=== PATIENT | female | born 2000 | race Caucasian/White ===

== ENCOUNTER 2024-04-28 09:15 | Emergency (ER) | payer BC, SELFPAY ==
[2024-04-28 09:18] VITALS: BP 78/60
--- NOTE | 2024-04-28 09:31 | ED.GENMED ---
History of Present Illness
<Elsi Gaitan PA-C - Last Filed: 04/28/24 16:15>
General
Chief Complaint: Musculo-Skeletal Complaint
Source: patient
Exam Limitations: none
Time Seen by Provider: 04/28/24 09:29
Nursing documentation reviewed up to this point in time: agreed with
History of Present Illness
History of Present Illness:
This is a 24-year-old female with past medical history of ACL repair presents emergency department today with concerns of right shoulder pain. Patient reports that she was at the gym today when she was doing a shoulder press exercises overhead when
she subsequently felt sharp, acute pain and felt that her shoulder had popped out. This has happened to her once before when she was skiing but it went in on its own. She does see an orthopedist with [facility] and [place]. Patient
states that at the gym, EMS was called. She denies any other injuries, denies any falls, denies loss of sensation in her upper extremity.
Review of Systems
<KRISTINA Padilla Last Filed: 04/28/24 16:15>
Review of Systems
All Other Systems: ROS reviewed and negative except as documented in HPI and ROS
Phy Exam
<KRISTINA Padilla Last Filed: 04/28/24 16:15>
Physical Exam
Physical Exam:
General: Patient is well appearing and in no acute distress; non-toxic
Skin: Warm and dry, no rashes or lesions
Head: Normocephalic, atraumatic
Eyes: Sclera non-icteric. EOMs intact.
Cardiac: Regular rate
Pulm: Normal respiratory effort
Musculoskeletal: Right shoulder held in abduction and external rotation.
Neuro: CN II-XII intact, no focal neurologic deficits. Sensation intact.
Psychiatric: Appropriate mood and affect.
Course
<Elsi Gaitan PA-C - Last Filed: 04/28/24 16:15>
Orders/Labs/Results
Orders:
Orders
04/28/24 09:31
CR Shoulder - Right Min 2 View Urgent
Comment:
Reason For Exam: right shoulder pain/dislocation
04/28/24 10:45
CR Shoulder - Right 1 View Urgent
Comment:
Reason For Exam: post reduction
Vital Signs
Initial and Last Documented VS:
Initial Vital Signs
Temp Pulse Resp BP Pulse Ox
98.6 F 61 16 78/60 99
04/28/24 09:18 04/28/24 09:18 04/28/24 09:18 04/28/24 09:18 04/28/24 09:18
Last Documented Vital Signs
Temp Pulse Resp BP Pulse Ox
98.6 F 53 14 114/67 99
04/28/24 09:18 04/28/24 10:59 04/28/24 10:59 04/28/24 10:59 04/28/24 10:59
<Yahir Moreira MD - Last Filed: 04/28/24 18:28>
Orders/Labs/Results
Orders:
Orders
04/28/24 09:31
CR Shoulder - Right Min 2 View Urgent
Comment:
Reason For Exam: right shoulder pain/dislocation
04/28/24 10:45
CR Shoulder - Right 1 View Urgent
Comment:
Reason For Exam: post reduction
Vital Signs
Initial and Last Documented VS:
Initial Vital Signs
Temp Pulse Resp BP Pulse Ox
98.6 F 61 16 78/60 99
04/28/24 09:18 04/28/24 09:18 04/28/24 09:18 04/28/24 09:18 04/28/24 09:18
Last Documented Vital Signs
Temp Pulse Resp BP Pulse Ox
98.6 F 53 14 114/67 99
04/28/24 09:18 04/28/24 10:59 04/28/24 10:59 04/28/24 10:59 04/28/24 10:59
Procedures
<Elsi Gaitan PA-C - Last Filed: 04/28/24 16:15>
Joint/Fracture Reduction
Right Shoulder:
Indication for procedure:: Right shoulder dislocation, pain
Procedure completed by: Elsi Gaitan PA-C
Joint reduced: without anesthesia
Anesthesia/sedation: Injection to joint space (My attending Dr. Moreira performed intraarticular joint injection for pain relief with bupivacaine and lidocaine )
Injury was: closed
Post reduction exam: stable
Capillary Refill: normal
Normal distal neurovascular exam?: Yes
Additional information:
Normal peripheral pulses
<Elsi Gaitan PA-C - Last Filed: 04/28/24 16:15>
MDM/Problems Addressed
Differential Diagnosis Includes:
ddx include musculoskeletal sprain/strain, anterior shoulder dislocation, posterior shoulder dislocation
MDM/Problems Addressed:
This is a 24-year-old female with past medical history of ACL repair presents emergency department today with concerns of right shoulder pain. Patient reports that her shoulder popped out at the gym today while doing an overhead press with
dumbbells. X-ray demonstrates right anterior shoulder dislocation. Her shoulder was reduced without the need for procedural sedation. Patient tolerated the procedure well. Patient will follow up with her orthopedic surgeon.
<Elsi Gaitan PA-C - Last Filed: 04/28/24 16:15>
*Pulse Oximetry
Patient hypoxic: no
*Critical Care Note
Total Time (30-74mins, 75-104mins- exclusive of procedures): Not Applicable
Data Reviewed
Review of Other/Old Records Reveals: Records (n previous ER visits)
Source: patient and records
<Elsi Gaitan PA-C - Last Filed: 04/28/24 16:15>
Patient Management
Escalation/DeEscalation of care consider admission/obs:
Admit not indicated, patient stable for discharge
ED Attending Note
<Elsi Gaitan PA-C - Last Filed: 04/28/24 16:15>
-
Portions of this chart may have been created with voice recognition software.� Occasional wrong word or��sound alike� substitutions may have occurred due to the inherent limitations of voice recognition software.
<Yahir Moreira MD - Last Filed: 04/28/24 18:28>
ED Attending Note
Patient seen and examined by attending physician: Yes
ED Attending Note:
Pt with previous history of right shoulder dislocation, presents to ED with similar recurrent right shoulder pain, while lifting free weight at the gym, shortly prior to arrival. Denies direct trauma. Denies loss of sensation/weakness.
General: well nourished female, in mild painful distress. afebrile
Heent: nc/at. eomi
Lungs: cta
Neuro: aao x 3. no focal neurological deficit.
Ext: mild tenderness to palpation over right shoulder with mild soft tissue defect.
Skin: no rash. warm to touch.
Psych: pleasant and cooperative.
History/exam and x-ray consistent with right shoulder dislocation.
Local anesthesia provided with lidocaine/bupivocaine. Shoulder successfully reduced with external rotation, confirmed via repeat x-ray. Pt is otherwise neurologically intact at time of discharge, to the care of her family.
Discharge Plan
Departure
Patient Disposition: Home (Routine Discharge)
Date of Disposition: 04/28/24
Time of Disposition: 11:19
Patient with high blood pressure during this ER visit?: No
Condition: Good
Discharge Problem:
Anterior dislocation of right shoulder
Instructions: Shoulder Dislocation, How to Use a Shoulder Sling
Referrals:
Brandon Andrew DO [Family Provider] -
Activity Restrictions/Additional Instructions:
Please follow-up with your orthopedic surgeon.
You can alternate Tylenol and Motrin for pain.
Please return to the emergency department should you experience persistent numbness and tingling in your right arm, pallor, loss of sensation, increasing pain, or any other signs or symptoms concerning to you.
Interventions
Interventions:
*Risk Screen - Suicide Last Done: 04/28/24 09:18
*General Assessment Last Done: 04/28/24 09:40
*Neglect/Abuse Screening Last Done: 04/28/24 09:18
ED- Fall Risk Assessment Last Done: 04/28/24 09:40
*ED COVID-19 Vaccine History Last Done: 04/28/24 09:40
*Nursing Disposition Last Done: 04/28/24 11:47
ED-Musculoskeletal Assessment Last Done: 04/28/24 09:41
Discharge Date and Time
Discharge Date/Time: 04/28/24 11:48
Print Language: ERITREAN
[2024-04-28 09:38] VITALS: BMI 24.4
--- NOTE | 2024-04-28 10:30 | EDRN ---
Dr. Moreira and Sarah Weston PA in to attempt R shoulder reduction at this time that was successful
--- NOTE | 2024-04-28 10:57 | EDRN ---
Post reduction xray cxompleted at this time.
[2024-04-28 10:59] VITALS: BP 114/67
== END 2024-04-28 11:48 | disposition home or self-care (01) ==
LOC: EMR 09:15
PROVIDERS: EMERGENCY PHYSICIAN Emergency Medicine; FAMILY PHYSICIAN Family Medicine
DX: S43.014A Anterior dislocation of right humerus, initial encounter (principal); X50.1XXA Overexertion from prolonged static or awkward postures, initial encounter
CPT/HCPCS: 23650; 73020; 73030; 99283

== ENCOUNTER → 2024-08-22 13:58 | Outpatient (REF) | payer BC, SELFPAY | LOC: MRI 3T 13:58 | PROVIDERS: ATTENDING PHYSICIAN Orthopaedic Surgery Sports Medicine; FAMILY PHYSICIAN Family Medicine | DX: S43.431A Superior glenoid labrum lesion of right shoulder, initial encounter (principal) | CPT/HCPCS: 23350; 73040; 73222 ==